=== PATIENT | male | born 1955 | race Caucasian/White ===

== ENCOUNTER 2024-05-17 19:19 | Outpatient (REF) | payer MEDICARE, SELFPAY ==
[2024-05-17 17:51] LABS: ALT 40 U/L (16-63); AST 18 U/L (15-37); Alkaline Phosphatase 78 U/L (46-116); Anion Gap 8.3 mmol/L (3-11); BUN 17 mg/dL (7-18); Bilirubin, Total 0.81 mg/dL (0.2-1.0); CO2 28.7 mmol/L (21.0-32.0); CREATININE 0.8 mg/dL (0.70-1.30); Calcium 9.1 mg/dL (8.5-10.1); Calculated LDL 98 mg/dL (<100); Chloride 108 mmol/L (98-107); Cholesterol 162 mg/dL (<200); Estimated GFR 95.21 (mL/min/1.73m2); Glucose 101 mg/dL (74-106); HDL Cholesterol 53 mg/dL (40-60); Magnesium 1.9 mg/dL (1.8-2.4); Potassium 3.9 mmol/L (3.5-5.1); Sodium 145 mmol/L (136-145); TSH 2.28 uIU/Ml (0.36-3.74); Total Protein 6.7 g/dL (6.4-8.2); Triglyceride 55 mg/dL (<150); Vitamin B12 287 pg/mL (193-986)
[2024-05-17 18:46] LABS: Folate > 20.0 ng/mL (8.6-20.0)
[2024-05-18 11:07] LABS: HIV-1/2 Ag & Ab Screen Negative (Negative)
[2024-05-18 11:25] LABS: Lyme Ab w Rflx to Lyme Confirm Negative (Negative)
[2024-05-18 11:29] LABS: Syphilis Serology (RPR) Negative (Negative)
[2024-05-20 12:25] LABS: Anaplasma phagocytophilum Negative (Negative); B. miyamotoi PCR Negative (Negative); Babesia divergens/MO-1 Negative (Negative); Babesia duncani Negative (Negative); Babesia microti Negative (Negative); Ehrlichia chaffeensis Negative (Negative); Ehrlichia ewingii/canis Negative (Negative); Ehrlichia muris eauclairensis Negative (Negative)
== END 2024-05-17 19:20 | disposition home or self-care (01) ==
LOC: NCHCN 19:19
PROVIDERS: Visit Provider Student in an Organized Health Care Education/Training Program
DX: E78.5 Hyperlipidemia, unspecified (principal)
CPT/HCPCS: 80053; 80061; 87389; 87798; 82607; 82746; 83735; 84443; 86592; 86618

== ENCOUNTER 2024-06-14 01:17 | Outpatient (CLI) | payer MEDICARE, SELFPAY ==
--- NOTE | 2024-06-14 | DI.US_ITS ---
Exam(s) US THYROID EXAM: US THYROID CLINICAL HISTORY: R22.1 Localized swelling,mass/lump,neck. TECHNIQUE: Ultrasound thyroid performed using standard protocol. COMPARISON: No exams were available for comparison FINDINGS: ISTHMUS: 4 mm RIGHT LOBE: Size: 4.0 x 1.3 x 1.8 cm Echogenicity: Normal. Vascularity: Normal. Nodules: None. LEFT LOBE: Size: 3.5 x 1.7 x 1.0 cm Echogenicity: Normal. Vascularity: Normal. Nodules: None. OTHER FINDINGS: In the soft tissue superior to the thyroid gland, there appear to be areas of nodular ity in the soft tissues. In the right neck measures 0.5 cm. These may represent lymph nodes. There is a question of involvement of the adjacent musculature. A CT scan of the neck with contrast is re commended for further evaluation. IMPRESSION: 1. Normal sonographic appearance of the thyroid gland. No thyroid nodules. 2. Areas of nodularity in the soft tissues of the neck superior to the thyroid gland. This area shou ld be further evaluated with a CT scan of the neck with contrast. Unexpected findings DATA REPOSITORY:
== END 2024-06-14 01:37 ==
LOC: DI 01:17
PROVIDERS: Visit Provider Student in an Organized Health Care Education/Training Program
DX: R22.1 Localized swelling, mass and lump, neck (principal)
CPT/HCPCS: 76536

== ENCOUNTER 2024-06-28 15:58 | Outpatient (REF) | payer MEDICARE, SELFPAY ==
[2024-06-28 19:33] LABS: Anion Gap 9.9 mmol/L (3-11); BUN 23 mg/dL (7-18); CO2 27.1 mmol/L (21.0-32.0); CREATININE 0.8 mg/dL (0.70-1.30); Calcium 9.5 mg/dL (8.5-10.1); Chloride 105 mmol/L (98-107); Estimated GFR 95.21 (mL/min/1.73m2); Glucose 122 mg/dL (74-106); Potassium 4.1 mmol/L (3.5-5.1); Sodium 142 mmol/L (136-145)
== END 2024-06-28 15:59 | disposition home or self-care (01) ==
LOC: NCHCN 15:58
PROVIDERS: PCP Student in an Organized Health Care Education/Training Program; Visit Provider Student in an Organized Health Care Education/Training Program
DX: R22.1 Localized swelling, mass and lump, neck (principal)
CPT/HCPCS: 80048

== ENCOUNTER 2024-08-18 00:28 | Outpatient (CLI) | payer MEDICARE, SELFPAY ==
--- NOTE | 2024-08-18 | DI.CT_ITS ---
Exam(s) CT NECK W EXAM: CT NECK W CLINICAL HISTORY: NODULE NECK RIGHT R22.1 FU THYROID US 06/14/24. TECHNIQUE: Imaging Protocol: Axial computed tomography images with coronal and sagittal reformatted images were created and reviewed. CONTRAST MATERIAL: Intravenous: Omnipaque 350 Contrast volume:100mL COMPARISON: US US THYROID from 06/14/2024 FINDINGS: There is artifact from the patient's dental work. Orbits and orbital soft tissues: Within normal limits. Visualized paranasal sinuses: Within normal limits. Nasopharynx: Within normal limits. Oropharynx: Within normal limits. Hypopharynx: Within normal limits. Larynx: Within normal limits. Retropharyngeal space: Within normal limits. Parotids/submandibular: Within normal limits. Thyroid gland: Within normal limits. Lymphadenopathy: There is scattered lymph nodes seen along the level one to level three all measurin g less than 8 mm in short axis diameter which are physiologic in nature. Trachea: Within normal limits. Lung apices: Within normal limits. Bones: Within normal limits for the patient's age. The right sternoclavicular joint appears mildly d istended with fluid. There is also enhancement of the periphery of the joint. The bones appear inta ct. No erosive changes are seen. Carotids/Jugular: Within normal limits. Atherosclerotic calcification is seen. Soft tissues: The soft tissue abnormality seen on the ultrasound from 06/14/2024 not visualized on t he current examination. IMPRESSION: 1. The small soft tissue nodule seen on the ultrasound from 06/14/2024 not visualized on the current e xamination. 2. No evidence of a soft tissue mass. No adenopathy. 3. Distension of the right sternoclavicular joint with fluid. There is enhancement of the wall of th e joint. Inflammation/Infection should be considered. Please correlate with patient's physical exam ination. Unexpected findings RADIATION DOSE DELIVERED: 272.04mGy.cm Total DLP 272.04mGy.cm Total DLP DATA REPOSITORY: All CT scans at this facility are submitted to the National Radiology Data Registry (NRDR) Dose Index Registry (DIR) with the [employer] ([employer]). RADIATION OPTIMIZATION: All CT scans at this facility use at least one of these dose optimization te chniques: automated exposure control; mA and/or kV adjustment per patient size (includes targeted exa ms where dose is matched to clinical indication); or iterative reconstruction.
[2024-08-18] MEDS: Normal Saline - Diluent 50 ML VIAL IJ (13:15)
[2024-08-18] MEDS: Omnipaque 350 MG/ML 100 ML BTL IJ (13:16)
== END 2024-08-18 00:48 ==
PROVIDERS: PCP Student in an Organized Health Care Education/Training Program; Visit Provider Student in an Organized Health Care Education/Training Program
DX: R22.1 Localized swelling, mass and lump, neck (principal)
CPT/HCPCS: 70491; J3490

== ENCOUNTER 2025-01-22 02:52 | Outpatient (CLI) | payer MEDICARE, SELFPAY ==
[2025-01-22 11:58] LABS: Abs Immature Grans 0.01 10^3/uL (0.0-0.06); Absolute Basophil Count 0.04 10^3/uL (0.0-0.2); Absolute Eosinophil Count 0.08 10^3/uL (0.0-0.7); Absolute Lymphocyte Count 1.14 10^3/uL (1.2-3.4); Absolute Monocyte Count 0.52 10^3/uL (0.1-0.8); Basophils % 0.9 %; Eosinophils % 1.7 %; HCT 48.1 % (40.0-50.0); HGB 16.4 g/dL (13.5-17.5); Immature Grans % 0.2 %; Lymphocytes % 24.8 %; MCHC 34.1 % (32.0-36.0); MCV 94 fL (80-95); Monocytes % 11.3 %; Neutrophils % 61.1 %; Platelet Count 152 10^3/uL (130-400); RBC 5.12 10^6/uL (4.36-5.78); RDW 11.7 % (11.8-14.1); RDW-SD 40.5 fL; WBC 4.59 10^3/uL (4.4-10.8)
== END 2025-01-22 02:53 | disposition home or self-care (01) ==
LOC: LBO 02:52
PROVIDERS: PCP Student in an Organized Health Care Education/Training Program; Visit Provider Student in an Organized Health Care Education/Training Program
DX: R22.1 Localized swelling, mass and lump, neck (principal)
CPT/HCPCS: 36415; 85025

== ENCOUNTER 2025-02-06 16:27 | Outpatient (REF) | payer MEDICARE, SELFPAY ==
[2025-02-06 17:06] LABS: Calculated LDL 101 mg/dL (<100); Cholesterol 160 mg/dL (<200); HDL Cholesterol 54 mg/dL (>or=40); Hemoglobin A1C 5.4 % (<5.7); Triglyceride 29 mg/dL (<150)
== END 2025-02-06 16:28 | disposition home or self-care (01) ==
LOC: NCHCN 16:27
PROVIDERS: PCP Student in an Organized Health Care Education/Training Program; Visit Provider Student in an Organized Health Care Education/Training Program
DX: E78.00 Pure hypercholesterolemia, unspecified (principal); Z13.1 Encounter for screening for diabetes mellitus
CPT/HCPCS: 80061; 83036

== ENCOUNTER 2025-06-12 14:54 | Outpatient (REF) | payer MEDICARE, SELFPAY | END 2025-06-12 14:55 | disposition home or self-care (01) | LOC: LBN 14:54 | PROVIDERS: PCP Student in an Organized Health Care Education/Training Program; Visit Provider Family Medicine | DX: J02.9 Acute pharyngitis, unspecified (principal) | CPT/HCPCS: 87070 ==